=== PATIENT | female | born 1985 | race American Indian/Alaskan Native ===

== ENCOUNTER 2019-03-13 18:52 | Emergency (ER) | payer MEDICAID ==
[~2019-03-13] VITALS: Ht 162.6 cm; Wt 96.0 kg
[~2019-03-13 18:52] MED LIST: OMEP20TA5 PO
[2019-03-13 19:38] LABS: PARTIAL THROMBOPLASTIN TIME 28 SECONDS (22-32)
[2019-03-13] MEDS ORDERED: ondansetron 4mg rapidly disintigrating tab PO STA (19:38)
[2019-03-13] MEDS ORDERED: sucralfate 1gm/10ml UD suspension PO STA (19:38)
[2019-03-13] MEDS ORDERED: famotidine 20mg tablet PO ONE (19:40)
[2019-03-13] MEDS ORDERED: mag hydrox/Alum hydrox/simeth 30ml oral suspension PO ONE (19:40)
[2019-03-13] MEDS ORDERED: LIDOcaine Viscous 15ml cup PO ONE (19:40)
[2019-03-13 19:41] LABS: ALANINE AMINOTRANSFERASE 49 U/L (12-78); ALBUMIN 3.8 G/DL (3.4-5.0); ALBUMIN/GLOBULIN RATIO 0.9 (1.1-1.5); ALKALINE PHOSPHATASE 122 IU/L (46-116); ANION GAP 9 (8-16); ASPARTATE AMINO TRANSFERASE 52 U/L (10-37); BILIRUBIN,TOTAL 0.3 MG/DL (0.1-1.0); BLOOD UREA NITROGEN 17 MG/DL (7-18); BUN/CREATININE RATIO 19.8 (6.6-38.0); CALCIUM 9.1 MG/DL (8.5-10.1); CHLORIDE 106 MMOL/L (99-107); CREATININE 0.86 MG/DL (0.40-0.90); GLUCOSE 110 MG/DL (70-104); POTASSIUM 3.6 MMOL/L (3.5-5.1); SODIUM 144 MMOL/L (135-145); TOTAL CARBON DIOXIDE 28.8 MMOL/L (24-32); TOTAL PROTEIN 8.2 G/DL (6.4-8.2); eGFR 75 ML/MIN
[2019-03-13 19:47] LABS: BASOPHILS % (AUTO) 0.2 % (0-1); EOSINOPHILS % (AUTO) 0.4 % (0-6); HEMATOCRIT 38.2 % (35.0-45.0); HEMOGLOBIN 12.7 g/dl (12.0-16.0); LYMPHOCYTES # (AUTO) 2.2 X10'3 (1.1-4.8); LYMPHOCYTES % (AUTO) 17.8 % (21-51); MEAN CORPUSCULAR HEMOGLOBIN 28.8 PG (27.0-31.0); MEAN CORPUSCULAR HGB CONC 33.3 g/dL (33.0-36.5); MEAN CORPUSCULAR VOLUME 86.7 FL (78-98); MEAN PLATELET VOLUME 7.8 FL (7.4-10.4); MONOCYTES # (AUTO) 0.9 X10'3 (0-0.9); MONOCYTES % (AUTO) 7.1 % (2-12); NEUTROPHILS # (AUTO) 9.3 X10'3 (1.8-7.7); NEUTROPHILS % (AUTO) 74.5 % (42-75); PLATELET COUNT 294 X10'3 (140-440); RED CELL DISTRIBUTION WIDTH 15.1 % (11.5-14.5); WHITE BLOOD COUNT 12.5 X10'3 (4.5-11.0)
[2019-03-13] MEDS ORDERED: ondansetron/PF 4mg/2ml inj IV ONE (20:15)
[2019-03-13] MEDS ORDERED: normal saline 1000ML IV soln IVB ONE (20:15)
[2019-03-13] MEDS: morphine 4 MG/ML inj SYRINge IV PRN ×2 (20:27→21:30)
[2019-03-13] MEDS ORDERED: proCHLORperazine 10 MG/2 ml inj IV ONE (21:25)
[2019-03-13] MEDS ORDERED: ketorolac trometh. 30mg/ml inj. IV ONE (21:25)
[2019-03-13] MEDS ORDERED: morphine 4 MG/ML inj SYRINge IM ONE (21:30)
[2019-03-13 21:48] LABS: LIPASE 84 U/L (73-393)
--- NOTE | 2019-03-13 22:00 | NUR ---
Ultrasound at bedside performing US study.
--- NOTE | 2019-03-13 22:45 | NUR ---
Pt denies pain and nausea. Pt able to tolerate PO fluids with no episodes of vomiting.
[2019-03-13 23:03] VITALS: BP 103/58
== END 2019-03-13 22:57 | disposition home or self-care (01) ==
LOC: ER 18:53
DX: R11.2 Nausea with vomiting, unspecified (principal); R10.9 Unspecified abdominal pain; F12.90 Cannabis use, unspecified, uncomplicated
CPT/HCPCS: 36415; 71045; 76700; 80053; 83690; 84484; 85025; 85610; 85730; 93005; 96361; 96374; 96375; 96376; 99284; J0780; J1885; J2270; J2405; J7030

== ENCOUNTER 2019-03-15 18:15 | Emergency (ER) | payer MEDICAID ==
[~2019-03-15] VITALS: Ht 162.6 cm; Wt 100.0 kg
[2019-03-15 18:38] VITALS: BP 174/104
== END 2019-03-15 19:04 | disposition home or self-care (01) ==
LOC: ER 18:15
DX: H01.002 Unspecified blepharitis right lower eyelid (principal); F12.90 Cannabis use, unspecified, uncomplicated; Z98.890 Other specified postprocedural states
CPT/HCPCS: 99281

== ENCOUNTER 2022-10-20 02:02 | Emergency (ER) | payer MEDICAID ==
[~2022-10-20] VITALS: Ht 162.6 cm; Wt 93.2 kg
[~2022-10-20 02:02] MED LIST changes: +OMEP20TA43 PO; -OMEP20TA5 PO
[2022-10-20] MEDS ORDERED: LIDOcaine Viscous 15ml cup MM ONE (02:30)
[2022-10-20] MEDS ORDERED: mag hydrox/Alum hydrox/simeth 30ml oral suspension PO ONE (02:30)
[2022-10-20] MEDS ORDERED: ondansetron 4mg rapidly disintigrating tab PO ONE (02:30)
[2022-10-20] MEDS ORDERED: dicyclomine 10 MG capsule PO ONE (02:30)
[2022-10-20] MEDS ORDERED: famotidine/PF 10 mg/ml inj IV ONE (03:20)
[2022-10-20] MEDS ORDERED: meperidine/PF 50mg/ml syringe IV ONE (03:20)
[2022-10-20] MEDS ORDERED: normal saline 1000ML IV soln IVB ONE (03:20)
[2022-10-20 03:51] LABS: ALANINE AMINOTRANSFERASE 41 U/L (12-78); ALBUMIN 3.6 G/DL (3.4-5.0); ALBUMIN/GLOBULIN RATIO 0.9 (1.1-1.5); ALKALINE PHOSPHATASE 111 IU/L (46-116); ANION GAP 10 (8-16); ASPARTATE AMINO TRANSFERASE 53 U/L (10-37); BILIRUBIN,TOTAL 0.2 MG/DL (0.1-1.0); BLOOD UREA NITROGEN 19 MG/DL (7-18); BUN/CREATININE RATIO 25.3 (10.0-20.0); CHLORIDE 104 MMOL/L (99-107); CREATININE 0.75 MG/DL (0.40-0.90); GLUCOSE 123 MG/DL (70-104); LIPASE 57 U/L (73-393); POTASSIUM 4.2 MMOL/L (3.5-5.1); SODIUM 140 MMOL/L (135-145); TOTAL CARBON DIOXIDE 25.9 MMOL/L (24-32); TOTAL PROTEIN 7.8 G/DL (6.4-8.2); eGFR 86 ML/MIN
--- NOTE | 2022-10-20 04:37 | NUR ---
SPOKE WITH REGARDING HR AND MEDICATION ADMINISTRATION. MED OKNETTED BY
--- NOTE | 2022-10-20 05:00 | NUR ---
0440 PT GIVEN 25MG DEMEROL SIVP PENDING REACTION, CAUSING NAUSEA 0500 PT STATES NO PAIN RELIEF, SECOND DOSE GIVEN, TOTAL 50MG PER ORDER, STILL NAUSEOUS, NO VOMITING md TO BE AWARE
[2022-10-20] MEDS ORDERED: ondansetron/PF 4mg/2ml inj IV ONE ×2 (05:20→06:40)
[2022-10-20 05:45] LABS: BASOPHILS % (AUTO) 0.4 % (0-1); EOSINOPHILS % (AUTO) 0.1 % (0-6); HEMATOCRIT 36.3 % (35.0-45.0); HEMOGLOBIN 11.9 g/dl (12.0-16.0); LYMPHOCYTES # (AUTO) 1.3 X10'3 (1.1-4.8); LYMPHOCYTES % (AUTO) 12.7 % (21-51); MEAN CORPUSCULAR HEMOGLOBIN 28.2 PG (27.0-31.0); MEAN CORPUSCULAR HGB CONC 32.7 g/dL (33.0-36.5); MEAN CORPUSCULAR VOLUME 86.1 FL (78-98); MEAN PLATELET VOLUME 7.8 FL (7.4-10.4); MONOCYTES # (AUTO) 0.5 X10'3 (0-0.9); MONOCYTES % (AUTO) 4.9 % (2-12); NEUTROPHILS # (AUTO) 8.6 X10'3 (1.8-7.7); NEUTROPHILS % (AUTO) 81.9 % (42-75); PLATELET COUNT 276 X10'3 (140-440); RED BLOOD COUNT 4.22 X10'6 (4.20-5.60); RED CELL DISTRIBUTION WIDTH 14.7 % (11.5-14.5); WHITE BLOOD COUNT 10.5 X10'3 (4.5-11.0)
[2022-10-20] MEDS ORDERED: DICY10CA88 PO (06:18)
[2022-10-20 06:44] VITALS: BP 123/80
== END 2022-10-20 06:46 | disposition home or self-care (01) ==
LOC: ER 02:03
DX: K29.00 Acute gastritis without bleeding (principal); F12.10 Cannabis abuse, uncomplicated; Z79.899 Other long term (current) drug therapy
CPT/HCPCS: 36415; 74018; 80053; 83690; 83735; 85025; 96361; 96374; 96375; 99284; J2175; J2405; J3490; J7030

== ENCOUNTER 2023-04-17 09:54 | Emergency (ER) | payer MEDICAID ==
[~2023-04-17] VITALS: Ht 162.6 cm; Wt 86.0 kg
[2023-04-17 10:19] VITALS: BP 151/97; PULSE 84; RESP 17; TEMP 98.7; O2SAT 100
== END 2023-04-17 12:11 | disposition left against medical advice (07) ==
LOC: ER 09:54
DX: R07.89 Other chest pain (principal); Z53.21 Procedure and treatment not carried out due to patient leaving prior to being seen by health care provider
CPT/HCPCS: 93005; 99281